=== PATIENT | female | born 1935 | race Caucasian/White ===

== ENCOUNTER 2017-04-27 16:35 | Emergency (ER) | payer MEDICARE, OTHER ==
[~2017-04-27] VITALS: Ht 149.9 cm; Wt 52.0 kg
[2017-04-27 17:40] LABS: BASOPHILS # (AUTO) 0.04 x10^3/uL (0-0.1); BASOPHILS % (AUTO) 1 % (0-1); EOSINOPHILS # (AUTO) 0.16 x10^3/uL (0-0.4); EOSINOPHILS % (AUTO) 2 % (1-7); LYMPHOCYTES # (AUTO) 0.78 x10^3/uL (1-3.4); LYMPHOCYTES % (AUTO) 10 % (22-44); MD NO; MEAN CORPUSCULAR HEMOGLOBIN 30.5 pg (27.0-34.8); MEAN CORPUSCULAR HGB CONC 33.7 g/dL (32.4-35.8); MEAN CORPUSCULAR VOLUME 90.6 fL (80-100); MEAN PLATELET VOLUME 7.7 fL (7.4-10.4); MONOCYTES # (AUTO) 0.68 x10^3/uL (0.2-0.8); MONOCYTES % (AUTO) 9 % (2-9); NEUTROPHILS # (AUTO) 6.07 x10^3/uL (1.8-6.8); NEUTROPHILS % (AUTO) 78 % (42-75); PLATELET COUNT 370 x10^3/uL (130-400)
[2017-04-27] MEDS ORDERED: LORazepam 2 MG/ML, 1ML ONE (17:43)
[2017-04-27] MEDS ORDERED: FUROSEMIDE 20 MG/2 ML ONE (17:43)
[2017-04-27 17:48] LABS: ALBUMIN 3.7 g/dL (3.4-5.0); ANION GAP 6 mmol/L (5-15); CALCIUM 8.8 mg/dL (8.5-10.1); CHLORIDE 90 mmol/L (98-107); CREATININE 0.79 mg/dL (0.55-1.02)
[2017-04-27 17:52] LABS: TROPONIN I < 0.015 ng/mL (0.000-0.045)
[2017-04-27] MEDS ORDERED: FUROSEMIDE 20 MG/2 ML IV ONE (18:00)
[2017-04-27] MEDS ORDERED: LORazepam 2 MG/ML, 1ML IVPush ONE (18:00)
[2017-04-27 18:29] VITALS: BP 156/60
== END 2017-04-27 19:34 | disposition home or self-care (01) ==
LOC: ED 19:09
DX: I10 Essential (primary) hypertension (principal); E87.1 Hypo-osmolality and hyponatremia; D64.9 Anemia, unspecified
CPT/HCPCS: 36415; 71045; 80048; 82040; 83880; 84443; 84484; 85025; 93005; 96374; 96375; 99285; J1940; J2060

== ENCOUNTER → 2017-09-15 | Outpatient (CLI) | payer MEDICARE, OTHER | END | disposition home or self-care (01) | LOC: CVU 13:28 | PROVIDERS: ATTEND Surgery | DX: I65.23 Occlusion and stenosis of bilateral carotid arteries (principal); I10 Essential (primary) hypertension; E78.5 Hyperlipidemia, unspecified; Z87.891 Personal history of nicotine dependence | CPT/HCPCS: 93880 ==

== ENCOUNTER 2017-11-05 13:00 | Inpatient (IN) | payer MEDICARE, OTHER ==
[~2017-11-05] VITALS: Ht 147.3 cm; Wt 53.5 kg
[2017-11-05 13:28] LABS: ALANINE AMINOTRANSFERASE 18 U/L (12-78); ALBUMIN 3.8 g/dL (3.4-5.0); ANION GAP 3 mmol/L (5-15); CALCIUM 9.3 mg/dL (8.5-10.1); CHLORIDE 91 mmol/L (98-107); CREATININE 1.38 mg/dL (0.55-1.02)
[2017-11-05 13:29] LABS: BASOPHILS # (AUTO) 0.02 x10^3/uL (0-0.1); BASOPHILS % (AUTO) 0 % (0-1); EOSINOPHILS # (AUTO) 0.34 x10^3/uL (0-0.4); EOSINOPHILS % (AUTO) 4 % (1-7); LYMPHOCYTES # (AUTO) 1.33 x10^3/uL (1-3.4); LYMPHOCYTES % (AUTO) 16 % (22-44); MD NO; MEAN CORPUSCULAR HEMOGLOBIN 28.9 pg (27.0-34.8); MEAN CORPUSCULAR HGB CONC 32.8 g/dL (32.4-35.8); MEAN CORPUSCULAR VOLUME 88.1 fL (80-100); MEAN PLATELET VOLUME 7.4 fL (7.4-10.4); MONOCYTES % (AUTO) 12 % (2-9); NEUTROPHILS # (AUTO) 5.67 x10^3/uL (1.8-6.8); NEUTROPHILS % (AUTO) 68 % (42-75); PLATELET COUNT 458 x10^3/uL (130-400); RED BLOOD COUNT 3.58 x10^6/uL (3.82-5.3); RED CELL DISTRIBUTION WIDTH 13.1 % (9.6-15.2)
[2017-11-05 13:31] LABS: ALKALINE PHOSPHATASE 66 U/L (45-117); BILIRUBIN,TOTAL 0.4 mg/dL (0.2-1.0); TOTAL PROTEIN 7.5 g/dL (6.4-8.2)
[2017-11-05] MEDS ORDERED: CARV6.252 PO (13:58)
[2017-11-05] MEDS ORDERED: MORP60TA22 PO (13:58)
[2017-11-05] MEDS ORDERED: TRIA1CAP PO (13:58)
[2017-11-05] MEDS ORDERED: ATOR20TA PO (13:58)
[2017-11-05] MEDS ORDERED: Nebulizer INH (13:58)
[2017-11-05] MEDS ORDERED: FLUT1DIS IH (13:58)
[2017-11-05] MEDS ORDERED: Combivent INH (13:58)
[2017-11-05] MEDS ORDERED: CLON0.1T PO (13:58)
[2017-11-05] MEDS ORDERED: IRBE300T40 PO (13:58)
[2017-11-05] MEDS ORDERED: ALPR-475 PO (13:58)
[2017-11-05] MEDS ORDERED: MORP30TA PO (13:58)
[2017-11-08] MEDS ORDERED: LACTATED RINGERS 1,000 ML IV SCH (09:42)
[2017-11-08 10:00] VITALS: BP 167/74
[2017-11-08] MEDS ORDERED: MIDAZOLAM 1 MG/ML, 2ML ONE (10:36)
[2017-11-08] MEDS ORDERED: FENTANYL PF 100 MCG/2ML ONE (10:36)
[2017-11-08] MEDS ORDERED: BUPIVACAINE/PF-EPI 0.5% 1:200K ONE (11:49)
[2017-11-08] MEDS ORDERED: PROTAMINE SULFATE 10 MG/ML, 5ML ONE (11:49)
[2017-11-08] MEDS ORDERED: PAPAVERINE 30 MG/ML, 2ML ONE (11:49)
[2017-11-08] MEDS ORDERED: LIDOCAINE/PF 1%, 30ML ONE (11:49)
[2017-11-08] MEDS ORDERED: HEPARIN 1,000 UNITS/ML, 10ML ONE (11:50)
[2017-11-08] MEDS ORDERED: THROMBIN 20,000 UNIT VIAL TP ONE (11:50)
[2017-11-08] MEDS ORDERED: CEFAZOLIN 1,000 MG ONE (12:15)
[2017-11-08] MEDS ORDERED: LABETALOL 5MG/ML, 20ML ONE (12:15)
[2017-11-08] MEDS ORDERED: PROPOFOL 10 MG/ML, 20ML ONE (12:15)
[2017-11-08] MEDS ORDERED: EPHEDRINE 50 MG/ML, 1ML IVPush PRN (12:30)
[2017-11-08] MEDS ORDERED: HYDROmorphone 1 MG/ML, 1ML IV PRN (12:30)
[2017-11-08] MEDS ORDERED: FENTANYL PF 100 MCG/2ML IV PRN (12:30)
[2017-11-08] MEDS ORDERED: ONDANSETRON 2MG/ML, 2ML IV PRN ×2 (12:30→17:30)
[2017-11-08] MEDS ORDERED: ALBUTEROL SULFATE 2.5 MG/3 ML NPPB PRN (12:30)
[2017-11-08] MEDS ORDERED: niCARDipine 2.5 MG/ML, 10ML ONE (12:31)
[2017-11-08] MEDS: MORPHINE SULFATE 4 MG/ML, 1ML IVPush PRN ×4 (13:57→14:49)
[2017-11-08] MEDS ORDERED: OXYcodone 5 MG/5 ML ORAL.SOL UDC ONE (13:59)
[2017-11-08] MEDS ORDERED: hydrALAzine 20 MG/ML, 1ML ONE (13:59)
[2017-11-08] MEDS ORDERED: morphine SULFATE 10 MG/ML, 1ML ONE (13:59)
[2017-11-08] MEDS ORDERED: OXYcodone 5 MG/5 ML ORAL.SOL UDC PO PRN (14:30)
[2017-11-08] MEDS ORDERED: hydrALAzine 20 MG/ML, 1ML IV PRN ×3 (14:30→18:00)
[2017-11-08] MEDS ORDERED: LABETALOL 5MG/ML, 20ML IV PRN (14:30)
[2017-11-08] MEDS ORDERED: PROMETHAZINE 25 MG/ML, 1ML ONE (14:46)
[2017-11-08] MEDS ORDERED: MORPHINE SULFATE 4 MG/ML, 1ML ONE (14:47)
[2017-11-08] MEDS ORDERED: PROMETHAZINE 25 MG/ML, 1ML IV PRN (15:30)
[2017-11-08] MEDS ORDERED: ASPIRIN 325 MG TABLET EC PO ONE (15:30)
[2017-11-08] MEDS ORDERED: LABETALOL 5MG/ML, 20ML IVPush PRN (17:30)
[2017-11-08] MEDS: CARVEDILOL 6.25 MG TABLET PO SCH (17:54)
[2017-11-08] MEDS: HOMEMED SHEET MC SCH (17:55)
[2017-11-08] MEDS ORDERED: ALBUTEROL/IPRATROPIUM 2.5MG/0.5MG, 3 ML NPPB PRN ×2 (18:00)
[2017-11-08] MEDS ORDERED: HOMEMED SHEET MC SCH (18:00)
[2017-11-08] MEDS: LACTATED RINGERS 1,000 ML IV SCH (20:00)
[2017-11-08 20:10] VITALS: BP 144/56
[2017-11-08] MEDS: ATORVASTATIN 20 MG TABLET PO SCH (20:30)
[2017-11-08] MEDS: CEFAZOLIN PMX 1GM/50ML 50 ML IVPB SCH (20:30)
[2017-11-08] MEDS: morphine SULFATE 15 MG TAB.IR PO SCH ×2 (20:51→21:00)
[2017-11-08] MEDS: SODIUM CHLORIDE FLUSH 10ML SYR IVF SCH (20:53)
[2017-11-08] MEDS: ALBUTEROL/IPRATROPIUM 2.5MG/0.5MG, 3 ML NPPB SCH (20:54)
[2017-11-08] MEDS ORDERED: morphine SULFATE 60 MG TABLET.ER ONE (21:13)
[2017-11-08 23:50] VITALS: BP 175/72
[2017-11-09] VITALS (9 sets, daily range): BP systolic 131–180; BP diastolic 55–85
[2017-11-09] MEDS: HOMEMED SHEET MC SCH ×3 (00:42→17:39)
[2017-11-09] MEDS: CARVEDILOL 6.25 MG TABLET PO SCH ×2 (04:50→17:57)
[2017-11-09] MEDS: CEFAZOLIN PMX 1GM/50ML 50 ML IVPB SCH (04:50)
[2017-11-09] MEDS: ALBUTEROL/IPRATROPIUM 2.5MG/0.5MG, 3 ML NPPB SCH ×2 (07:50→20:18)
[2017-11-09] MEDS: LACTATED RINGERS 1,000 ML IV SCH ×2 (08:30→19:44)
[2017-11-09] MEDS: FLUTICASONE/VILANTEROL 100-25MCG/INH INH SCH (09:00)
[2017-11-09] MEDS: SODIUM CHLORIDE FLUSH 10ML SYR IVF SCH ×2 (09:00→19:44)
[2017-11-09] MEDS: TRIAMTERENE-HCTZ 37.5/25 MG TABLET PO SCH (09:16)
[2017-11-09] MEDS: IRBESARTAN 300 MG TABLET PO SCH (09:16)
[2017-11-09] MEDS: ASPIRIN 325 MG TABLET EC PO SCH (09:16)
[2017-11-09] MEDS: morphine SULFATE 15 MG TAB.IR PO SCH ×3 (09:18→21:00)
[2017-11-09] MEDS: ACETAMINOPHEN 325 MG TABLET PO PRN ×2 (10:51→19:44)
[2017-11-09] MEDS: ATORVASTATIN 20 MG TABLET PO SCH (19:44)
[2017-11-10 02:20] VITALS: BP 114/56
[2017-11-10] MEDS: CARVEDILOL 6.25 MG TABLET PO SCH (06:05)
[2017-11-10 07:02] VITALS: BP 169/79
[2017-11-10] MEDS: FLUTICASONE/VILANTEROL 100-25MCG/INH INH SCH (07:40)
[2017-11-10] MEDS: ASPIRIN 325 MG TABLET EC PO SCH (07:41)
[2017-11-10] MEDS: IRBESARTAN 300 MG TABLET PO SCH (07:41)
[2017-11-10] MEDS: TRIAMTERENE-HCTZ 37.5/25 MG TABLET PO SCH (07:41)
[2017-11-10] MEDS: morphine SULFATE 15 MG TAB.IR PO SCH ×2 (07:42→16:09)
[2017-11-10] MEDS: SODIUM CHLORIDE FLUSH 10ML SYR IVF SCH (07:42)
[2017-11-10] MEDS: LACTATED RINGERS 1,000 ML IV SCH (07:43)
[2017-11-10] MEDS: ALBUTEROL/IPRATROPIUM 2.5MG/0.5MG, 3 ML NPPB SCH (08:20)
[2017-11-10 10:50] VITALS: BP 110/50
[2017-11-10 12:30] VITALS: BP 139/59
[2017-11-10] MEDS: ACETAMINOPHEN 325 MG TABLET PO PRN (13:57)
[2017-11-10 16:06] VITALS: BP 190/78
[2017-11-10 17:08] VITALS: BP 119/45
== END 2017-11-10 17:29 | disposition home or self-care (01) | DRG 37 ==
LOC: ORIP 11-08 08:51 → 4NOR 11-08 17:00
PROVIDERS: ADMIT Surgery; ATTEND Surgery
PROC: 03UK0KZ Supplement Right Internal Carotid Artery with Nonautologous Tissue Substitute, Open Approach (ICD-10-PCS; 2017-11-08)
PROC: 03CH0ZZ Extirpation of Matter from Right Common Carotid Artery, Open Approach (ICD-10-PCS; 2017-11-08)
PROC: 03UH0KZ Supplement Right Common Carotid Artery with Nonautologous Tissue Substitute, Open Approach (ICD-10-PCS; 2017-11-08)
PROC: 03CM0ZZ Extirpation of Matter from Right External Carotid Artery, Open Approach (ICD-10-PCS; 2017-11-08)
PROC: 03CK0ZZ Extirpation of Matter from Right Internal Carotid Artery, Open Approach (ICD-10-PCS; principal; 2017-11-08 11:00)
DX: I65.23 Occlusion and stenosis of bilateral carotid arteries (principal); N17.0 Acute kidney failure with tubular necrosis; E87.1 Hypo-osmolality and hyponatremia; J44.9 Chronic obstructive pulmonary disease, unspecified; E78.5 Hyperlipidemia, unspecified; I10 Essential (primary) hypertension; Z99.81 Dependence on supplemental oxygen; I12.9 Hypertensive chronic kidney disease with stage 1 through stage 4 chronic kidney disease, or unspecified chronic kidney disease; N18.9 Chronic kidney disease, unspecified
CPT/HCPCS: 36415; 80053; 85025; 86850; 86900; 93005; 94640; C1729; G0378; J0690; J1644; J2250; J2704; J2720; J3010; J3490; J7620; C1768; J0360; J2440; J7120

== ENCOUNTER → 2018-03-02 | Outpatient (CLI) | payer MEDICARE, OTHER ==
[~2018-03-02] MED LIST: ALPR-475 PO; ATOR20TA PO; CARV6.252 PO; CLON0.1T22 PO; Combivent INH; FLUT1DIS IH; IRBE300T40 PO; MORP30TA PO; MORP60TA22 PO; Nebulizer INH; TRIA1CAP PO
== END | disposition home or self-care (01) ==
LOC: CVU 12:22
PROVIDERS: ATTEND Surgery
DX: I65.22 Occlusion and stenosis of left carotid artery (principal); I10 Essential (primary) hypertension; E78.5 Hyperlipidemia, unspecified
CPT/HCPCS: 93880